=== PATIENT | female | born 1985 | race Caucasian/White ===

== ENCOUNTER 2020-06-07 00:04 | Emergency (ER) | payer MEDICAID ==
[~2020-06-07] VITALS: Ht 160 cm; Wt 57.3 kg
[~2020-06-07 00:04] MED LIST: ONDA4TAB59 PO; PRENATAL ONE T1 EACH PO
[2020-06-07] MEDS ORDERED: ondansetron/PF 4mg/2ml inj IV ONE (00:25)
[2020-06-07] MEDS ORDERED: normal saline 1000ML IV soln IVB ONE (00:25)
[2020-06-07] MEDS ORDERED: pantoprazole 40 MG vial IV ONE (00:30)
[2020-06-07] MEDS ORDERED: famotidine/PF 10 mg/ml inj IV ONE (00:30)
[2020-06-07 01:16] LABS: BASOPHILS % (AUTO) 0.2 % (0-1); EOSINOPHILS % (AUTO) 0.1 % (0-6); HEMATOCRIT 42.6 % (35.0-45.0); HEMOGLOBIN 14.6 g/dl (12.0-16.0); LYMPHOCYTES # (AUTO) 1.1 X10'3 (1.1-4.8); LYMPHOCYTES % (AUTO) 4.9 % (21-51); MEAN CORPUSCULAR HEMOGLOBIN 31.1 PG (27.0-31.0); MEAN CORPUSCULAR HGB CONC 34.3 g/dL (33.0-36.5); MEAN CORPUSCULAR VOLUME 90.7 FL (78-98); MEAN PLATELET VOLUME 8.4 FL (7.4-10.4); MONOCYTES # (AUTO) 0.7 X10'3 (0-0.9); MONOCYTES % (AUTO) 3.2 % (2-12); NEUTROPHILS % (AUTO) 91.6 % (42-75); PLATELET COUNT 435 X10'3 (140-440); RED CELL DISTRIBUTION WIDTH 13.7 % (11.5-14.5); WHITE BLOOD COUNT 21.9 X10'3 (4.5-11.0)
[2020-06-07 01:17] LABS: ALANINE AMINOTRANSFERASE 82 U/L (12-78); ALBUMIN 4.6 G/DL (3.4-5.0); ALBUMIN/GLOBULIN RATIO 1.1 (1.1-1.5); ALKALINE PHOSPHATASE 60 IU/L (46-116); ANION GAP 15 (8-16); ASPARTATE AMINO TRANSFERASE 69 U/L (10-37); BILIRUBIN,TOTAL 0.8 MG/DL (0.1-1.0); BLOOD UREA NITROGEN 15 MG/DL (7-18); BUN/CREATININE RATIO 12.9 (6.6-38.0); CALCIUM 9.5 MG/DL (8.5-10.1); CHLORIDE 96 MMOL/L (99-107); CREATININE 1.16 MG/DL (0.40-0.90); GLUCOSE 183 MG/DL (70-104); LIPASE < 50 U/L (73-393); MAGNESIUM 1.6 MG/DL (1.5-2.4); SODIUM 135 MMOL/L (135-145); TOTAL CARBON DIOXIDE 24.5 MMOL/L (24-32); TOTAL PROTEIN 8.8 G/DL (6.4-8.2); eGFR 53 ML/MIN
[2020-06-07 01:21] LABS: POTASSIUM 2.7 MMOL/L (3.5-5.1)
[2020-06-07 01:21] LABS: URINE HCG NEGATIVE (NEG)
[2020-06-07] MEDS ORDERED: potassium Cl 20 mEq SR tablet PO ONE (01:25)
[2020-06-07 01:31] LABS: URINE AMPHETAMINE SCREEN NEGATIVE (Neg); URINE BARBITUATE SCREEN NEGATIVE (Neg); URINE BENZODIAZEPINES SCREEN NEGATIVE (Neg); URINE CANNABINOID SCREEN POSITIVE (Neg); URINE COCAINE SCREEN NEGATIVE (Neg); URINE METHADONE SCREEN NEGATIVE (Neg); URINE OPIATE SCREEN NEGATIVE (Neg); URINE PHENCYCLIDINE SCREEN NEGATIVE (Neg)
[2020-06-07 01:38] LABS: CLARITY,URINE SLIGHTLY CLOUDY (Clear); COLOR,URINE AMBER (Yellow); GLUCOSE, URINE NEGATIVE (Neg); KETONES,URINE >=80 mg/dl (Neg); LEUKOCYTE ESTERASE ,URINE NEGATIVE (Neg); NITRITES, URINE NEGATIVE (Neg); OCCULT BLOOD,URINE TRACE-INTACT (Neg); PROTEIN,URINE 100 mg/dl (Neg)
[2020-06-07 01:50] LABS: UA COLLECTION TYPE NON-SPECIFIED
[2020-06-07 01:51] LABS: BACTERIA,URINE FEW /HPF (Neg); MUCUS STRANDS FEW /LPF (Neg); RBC,URINE 0-2 /HPF (0-2); SQUAMOUS EPITHELIAL CELL,UR FEW /LPF (FEW); WBC,URINE 0-4 /HPF (0-4)
[2020-06-07] MEDS ORDERED: ONDA4TAB6 PO (01:54)
[2020-06-07] MEDS ORDERED: PROC25SU31 RC (01:54)
[2020-06-07] MEDS ORDERED: POTA20TA19 PO (01:54)
[2020-06-07] MEDS: potassium Cl 10 mEq/100mL bag IV SCH ×2 (02:03→02:30)
[2020-06-07] MEDS: magnesium 2GM in 50ml NS 50 ML IV SCH ×2 (02:03→02:25)
[2020-06-07] MEDS ORDERED: OMEP20CA15 PO (02:35)
[2020-06-07] MEDS ORDERED: FAMO20TA44 PO (02:35)
--- NOTE | 2020-06-07 02:41 | NUR ---
PT IS MED WAIT. POTASSIUM AND MG INFUSING NOW. WILL BE DC READY ONCE INFUSION OVER
--- NOTE | 2020-06-07 02:51 | NUR ---
PER DR. HURST, INFUSE MG GTT OVER 1` HR (50/ML HR)
[2020-06-07 04:52] VITALS: BP 110/71
== END 2020-06-07 04:56 | disposition home or self-care (01) ==
LOC: ER 00:05
DX: K52.9 Noninfective gastroenteritis and colitis, unspecified (principal); E86.0 Dehydration; F12.10 Cannabis abuse, uncomplicated; E87.6 Hypokalemia; Z88.0 Allergy status to penicillin; Z79.899 Other long term (current) drug therapy
CPT/HCPCS: 36415; 74176; 80053; 80305; 81001; 81025; 83690; 83735; 84145; 85025; 96361; 96365; 96368; 96375; 99285; C9113; J2405; J3475; J3480; J3490; J7030

== ENCOUNTER 2022-01-06 09:15 | Emergency (ER) | payer MEDICAID ==
[~2022-01-06] VITALS: Ht 160 cm; Wt 60.0 kg
[~2022-01-06 09:15] MED LIST changes: +FAMO20TA44 PO; +OMEP20CA15 PO; +ONDA4TAB6 PO
[2022-01-06 10:15] LABS: HCG SERUM QL POSITIVE
[2022-01-06 12:01] VITALS: BP 119/84
== END 2022-01-06 12:12 | disposition home or self-care (01) ==
LOC: ER 09:16
DX: O20.9 Hemorrhage in early pregnancy, unspecified (principal); Z88.0 Allergy status to penicillin; Z79.899 Other long term (current) drug therapy; Z3A.01 Less than 8 weeks gestation of pregnancy
CPT/HCPCS: 36415; 84702; 84703; 99283

== ENCOUNTER 2022-01-09 08:33 | Emergency (ER) | payer MEDICAID ==
[~2022-01-09] VITALS: Ht 160 cm; Wt 91.4 kg
[2022-01-09 08:42] VITALS: BP 121/85
== END 2022-01-09 09:59 | disposition home or self-care (01) ==
LOC: ER 08:34
DX: O03.9 Complete or unspecified spontaneous abortion without complication (principal); Z88.0 Allergy status to penicillin; Z79.899 Other long term (current) drug therapy
CPT/HCPCS: 36415; 84702; 99283

== ENCOUNTER → 2024-02-13 | Outpatient (CLI) | payer MEDICAID | END | disposition home or self-care (01) | LOC: RAD 13:45 | PROVIDERS: ATTEND Nurse Practitioner | DX: N92.6 Irregular menstruation, unspecified (principal) | CPT/HCPCS: 76830; 76856; 93976 ==

== ENCOUNTER 2025-06-18 17:38 | Emergency (ER) | payer MEDICAID, OTHER ==
[~2025-06-18] VITALS: Ht 162.6 cm; Wt 59.4 kg
[~2025-06-18 17:38] MED LIST changes: +PROC-8 PO; +PROM25SU9 RC
[2025-06-18 17:50] VITALS: TEMP 98.1
[2025-06-18 18:37] VITALS: BP 152/69; PULSE 86; RESP 15; O2SAT 98
--- NOTE | 2025-06-18 18:43 | Physician Documentation ---
History of Present Illness ~ Chief Complaint: Back Pain Stated Complaint: BACK/NECK PAIN Primary Medical Doctor: [facility] HPI 39-year-old female presents to the ED for evaluation of her worker's comp injury which occurred in March 2025 she has seen a worker's comp provider only via [employer] is concerned that her symptoms are getting worse. She originally injured herself while moving enlarged patient has had a care facility at [facility] Denies any incontinence fevers and has intermittent tingling and numbness states that pain goes all the way from her lumbar region all the way up her cervical spine. He is currently working on modified duty Day of Onset: Jun 18, 2025 Medication Reconciliation Allergies: Coded Allergies: Penicillins (Verified Allergy, Unknown, 06/18/25) <5 years, unknown reaction, unknown treatment, unknown PEN-FAST hydrocodone (Verified Allergy, Unknown, NAUSEA AND VOMITING, 06/18/25) fentanyl (Verified Adverse Reaction, Unknown, VOMIT, 06/18/25) Scheduled Famotidine (Pepcid AC), 1 TAB PO BID Omeprazole (Omeprazole), 2 CAP PO BID Ondansetron Hcl (Ondansetron Hcl), 4 MG PO Q8H PRN N/V Vit #108/Iron/Fa ( One Tablet), 1 EACH PO DAILY, (Reported) Prochlorperazine Maleate (Compazine), 1 TAB PO Q6H Promethazine Hcl (Promethegan), 25 MG RC Q6H PRN N/V Scheduled PRN Ondansetron Hcl (Zofran), 1 TAB PO Q6H PRN for nausea/vomiting Prochlorperazine Maleate (Compazine), 1 TAB PO TID PRN for nausea/vomiting Past Medical History Past Medical History: No Pertinent History Past Surgical History: no surgical history Alcohol Use: Rarely Drug Use: none Lives In: Home Review of Systems All Other Systems at this time: Reviewed and Negative ROS As stated above in the HPI, otherwise all systems are reviewed and negative. Physical Exam Physical Exam Vital Signs: Temperature: 98.1, Source: Oral, Heart Rate: 86, Respiratory Rate: 15, BP: 152/69, Pulse Oximetry: 98, Weight: 59.400 Oxygen Flow Rate: 0 Physical Exam General: Alert, no apparent distress. HEENT: PERRL, EOMI, no injection, moist mucous membranes. Neck: Full range of motion. Respiratory: Lungs clear, no respiratory distress. Chest: No accessory muscle use. Cardiovascular: Regular rate and rhythm, no murmurs. Gastrointestinal: Soft, nontender, nondistended. Bowels sounds present. Extremities: Normal range of motion, no deformity. Neurologic: Oriented x4. Psychiatric: Normal mood and affect. Skin: Normal color, warm and dry. No edema, no ecchymosis. Progress Results/Orders Results/Orders Vital Signs 06/18/25 06/18/25 17:50 18:37 Temp 98.1 Pulse 85 86 Resp 16 15 B/P (MAP) 137/92 152/69 (96) Pulse Ox 98 98 O2 Flow Rate 0 Medical Decision Making Additional information obtaine: old records Findings eloped Differential Dx:Considerations: Ectopic , Musculoskeletal pain Departure Disposition: 07 LEFT AWOL/ELOPED Impression: Primary Impression: Low back pain Referrals: NO PRIMARY CARE PROVIDER (PCP) Signature Scribe Signature: tr Attestation: Scribed for Emergency,Department by Ramon Jones NP . 06/18/25 23:03 RAMON TORO NP Jun 18, 2025 18:43
== END 2025-06-18 20:20 | disposition left against medical advice (07) ==
LOC: ER 17:39
DX: M54.50 Low back pain, unspecified (principal); Z88.0 Allergy status to penicillin; Z88.8 Allergy status to other drugs, medicaments and biological substances
CPT/HCPCS: 99282

== ENCOUNTER 2025-07-06 03:55 | Emergency (ER) | payer MEDICAID, OTHER ==
[~2025-07-06] VITALS: Ht 160 cm; Wt 57.7 kg
[2025-07-06] MEDS ORDERED: SULF1TAB49 PO (04:10)
[2025-07-06] MEDS ORDERED: PHEN-824 PO (04:10)
[2025-07-06] MEDS ORDERED: ONDA-243 PO (04:10)
--- NOTE | 2025-07-06 04:10 | Physician Documentation ---
History of Present Illness General Chief Complaint: Urinary Symptoms Stated Complaint: UTI Time Seen by MD: 04:03 Primary Medical Doctor: [facility] History of Present Illness Initial Comments This is a 39-year-old female who presents for evaluation of urinary urgency, frequency, dysuria, chills, nausea that woke her from sleep. She states it is worse she was not her usual state of health last night, enjoying her alcoholic beverages while doing Valeriy stuff, she subsequently did some self-care and took a kevin bath with a new soap. She then rinsed extra well and went to sleep. Her symptoms are similar to prior urinary tract infections. Denies any fever, chest pain, difficulty breathing, abdominal pain. She drinks alcohol, she smokes. She denies any chance of being , status post unilateral oophorectomy and hysterectomy. Medication Reconciliation Allergies: Coded Allergies: Penicillins (Verified Allergy, Unknown, 06/18/25) <5 years, unknown reaction, unknown treatment, unknown PEN-FAST hydrocodone (Verified Allergy, Unknown, NAUSEA AND VOMITING, 06/18/25) fentanyl (Verified Adverse Reaction, Unknown, VOMIT, 06/18/25) Scheduled Famotidine (Pepcid AC), 1 TAB PO BID Omeprazole (Omeprazole), 2 CAP PO BID Ondansetron Hcl (Ondansetron Hcl), 4 MG PO Q8H PRN N/V Vit #108/Iron/Fa ( One Tablet), 1 EACH PO DAILY, (Reported) Prochlorperazine Maleate (Compazine), 1 TAB PO Q6H Promethazine Hcl (Promethegan), 25 MG RC Q6H PRN N/V Scheduled PRN Ondansetron Hcl (Zofran), 1 TAB PO Q6H PRN for nausea/vomiting Prochlorperazine Maleate (Compazine), 1 TAB PO TID PRN for nausea/vomiting Past Medical History Past Medical History: No Pertinent History Past Surgical History: no surgical history Alcohol Use: Rarely Drug Use: none Lives In: Home Review of Systems ROS 10 point review of systems was performed and unless noted above in HPI is negative for acute process/complaint. Physical Exam Physical Exam Vital Signs: Temperature: 97.7, Source: Oral, Heart Rate: 89, Respiratory Rate: 16, BP: 128/85, Pulse Oximetry: 99, Weight: 57.730 Oxygen Flow Rate: 0 Physical Exam Physical examination: GENERAL: Awake, alert, oriented, GCS 15, no apparent distress, non-toxic appearing, answers questions, follows commands appropriately. HEENT: Atraumatic, normocephalic, pupils equal, extraocular muscles intact Active gross movements, sclerae anicteric, mucus membranes moist, no stridor. NECK: Midline, no JVD CARDIOVASCULAR: Good skin perfusion without evidence of pallor, mottling. PULMONARY: Nonlabored, symmetric chest rise, no audible wheezing, no accessory muscle use, no respiratory distress, speaking in full sentences. GASTROINTESTINAL: Not distended. NEUROLOGIC: Lucid with normal mental status. Normal facial symmetry. Moves all extremities symmetrically and with purpose. No truncal ataxia. Speech is fluid without evidence of dysarthria or aphasia, no focal deficits appreciated. EXTREMITIES: Acute deformities Skin: warm, dry PSYCHIATRIC: Normal affect, normal insight, normal concentration. Focused exam: [] Progress Results/Orders Results/Orders Orders - MARCIE PELAYO DO Urinalysis, Cult If Indicated (07/06/25 04:04) Phenazopyridine Tablet (Pyridium Tablet) (07/06/25 04:05) Sulfamethox/Trimetho. Ds Tab (Septra Ds (07/06/25 04:05) Ondansetron Disint. Tablet (Zofran Odt T (07/06/25 04:05) Vital Signs 07/06/25 03:58 Temp 97.7 Pulse 89 Resp 16 B/P (MAP) 128/85 Pulse Ox 99 O2 Flow Rate 0 Medical Decision Making Additional information obtaine: old records Findings Facility Status: ED [facility], [facility] process The plan was discussed with the patient, who demonstrates clear understanding of the plan and is in agreement with the plan unless otherwise noted in the chart. All questions have been answered, all concerns were addressed unless otherwise documented. I was available throughout their ED stay for frequent reassessment and questions. Differential Diagnoses (considered and possible or likely): [Urinary tract infection, pyelitis, pyelonephritis, unlikely renal colic, unlikely infected stone] ??Differential Diagnoses (considered and unlikely, not requiring evaluation currently): [Unlikely acute intra-abdominal process requiring surgical intervention] MDM Data Please see HPI for the following: Independent Historians and external Records Review. Historian: [Patient] Independent Historians: ?[Record review] Medication Management: [Reviewed medication list] Social History and determinants: [Reviewed] Please see the body of the note for the following: Any independent interpretations of ECG, imaging studies. All vitals signs/haemodynamics, ordered tests were independently reviewed and interpreted by myself. Nursing triage complaint and vitals reviewed, additional nursing notes were reviewed as available and I agree unless otherwise noted or documented in contradiction in the chart Vital Signs: Independently reviewed Labs: Independently interpreted Imaging: Independently interpreted Old Medical Records: Independently reviewed, see HPI for relevant summary and information Pulse Oximetry: [97%] interpreted as [normal on room air] by me Additionally notably showing: [Hemodynamically stable] Tests considered but not ordered include: [Hematologic workup and imaging has been considered but does not appear to be necessary given clinical nature of diagnosis] Social Determinants of Health Impact: Patient was evaluated in [facility] [place] to healthcare due to below par ratio of patient to medical providers. [] Comorbid Conditions Impacting Present Evaluation and Care/Treatment: [History of UTIs] Management Discussions with other Healthcare Providers: [None] Treatment and Disposition Medication Management (Given or considered): [Initial antibiotics, pain management, nausea management]. See EMR for details Consideration for Hospitalization/Escalation/Deescalation of Care: Admission for observation has been considered, [however the patient is able to tolerate p.o., their symptoms are controlled, they are able to rely on oral medications, and their chief complaint/diagnosis can be managed on outpatient basis.] ?ED Course:?[The patient improved.] ?Shared decision making:?[Patient is hemodynamically stable for discharge home with follow with their primary care provider. [ ] Specific and cautious return precautions provided and discussed with full understanding. Any incidental findings were also discussed and follow up recommendations given. [] All questions answered. Patient/family were able to verbalize back return precautions. Patient/family agree to plan. Copies of imaging and laboratory studies were provided.] Code status:?FULL Please see the full Electronic Medical Record for full details of nursing documentation, medications list, other records of complete past medical history and conditions, vital signs, laboratory studies, and any radiologic study interpretations by radiologists. Portions of this note were completed using [employer] dictation software and as a result there may exist minor errors in spelling. I have reviewed elements of past family and social history and agree as included in note. Differential Diagnosis See the body of main note for differential diagnosis Departure Disposition: HOME / SELF CARE / HOMELESS Impression: Primary Impression: Acute urinary tract infection Additional Impression: Nausea Condition: Improved Discharge Instructions: Urinary Tract Infection, Adult Referrals: NO PRIMARY CARE PROVIDER (PCP) Prescriptions ONDANSETRON ODT 4mg tablet (ONDANSETRON ODT) 4 Mg Tab.rapdis 1 TAB PO Q6H PRN PRN for nausea/vomiting for 4 Days, #16 TAB 0 Refills Prov: MARCIE PELAYO DO 07/06/25 Sulfamethoxazole/Trimethoprim (Bactrim Ds Tablet) 800 Mg-160 Mg Tablet 1 TAB PO Q12H for 7 Days, #14 TAB Prov: MARCIE PELAYO DO 07/06/25 Phenazopyridine HCl (Pyridium) 100 Mg Tablet 1 TAB PO Q8H for urinary discomfort for 2 Days, #6 TAB 0 Refills Prov: MARCIE PELAYO DO 07/06/25 Education Educated: Patient Educated regarding: diagnosis, treatment, prognosis, need for follow up Signature Scribe Signature: No scribe Attestation: The note accurately reflects work and decisions made by me.Marcie Pelayo DO 07/06/25 04:10 MARCIE PELAYO DO Jul 06, 2025 04:10
[2025-07-06 04:26] LABS: LEUKOCYTE ESTERASE ,URINE MODERATE (Neg); OCCULT BLOOD,URINE MODERATE (Neg)
[2025-07-06] MEDS: phenazopyridine 100mg tablet PO ONE (04:27)
[2025-07-06] MEDS: sulfamethoxazole/trimethoprim DS (800/160mg) tablet PO ONE (04:28)
[2025-07-06] MEDS: ondansetron 4mg rapidly disintigrating tab PO ONE (04:28)
[2025-07-06 04:32] LABS: UA COLLECTION TYPE CLN CATCH MIDSTREAM
[2025-07-06 04:33] VITALS: BP 113/85; PULSE 99; RESP 16; TEMP 97.7; O2SAT 98
[2025-07-06 04:39] LABS: NITRITES, URINE NEGATIVE (Neg)
[2025-07-06 04:41] LABS: SQUAMOUS EPITHELIAL CELL,UR FEW /LPF (FEW)
[2025-07-06 04:42] LABS: WBC CLUMPS,URINE MODERATE /HPF (NEGATIVE)
== END 2025-07-06 04:35 | disposition home or self-care (01) ==
LOC: ER 03:56
DX: N39.0 Urinary tract infection, site not specified (principal); R11.10 Vomiting, unspecified; F17.200 Nicotine dependence, unspecified, uncomplicated; Z88.0 Allergy status to penicillin; Z88.5 Allergy status to narcotic agent; Z88.8 Allergy status to other drugs, medicaments and biological substances
CPT/HCPCS: 81001; 87077; 87088; 87186; 99284